=== PATIENT | female | born 1995 | race Caucasian/White ===

== ENCOUNTER 2016-05-19 20:19 | Emergency (ER) | payer MEDICAID, OTHER ==
[2016-05-19 20:34] VITALS: BP 116/63
--- NOTE | 2016-05-19 20:43 | UC ---
Skin Complaint HPI - HPI Summary HPI Summary: has had a soft limp on her back for years now it seems to be a little bigger and it is causing her discomfort - History of Current Complaint Chief Complaint: UCGeneralIllness Time Seen by Provider: 05/19/16 20:37 Stated Complaint: BUMP ON BACK Hx Obtained From: Patient Hx Last Menstrual Period: 3 ?: No Onset/Duration: Gradual Onset - over years, Worse Since - this past year Timing: Constant Onset Severity: Mild Current Severity: Moderate Pain Intensity: 5 Location: Discrete - center of lumbar/sacral area of back Aggravating: Nothing Alleviating: Nothing Associated Signs & Symptoms: Positive: Negative - Allergy/Home Medications Allergies/Adverse Reactions: Allergies Allergy/AdvReac Type Severity Reaction Status Date / Time Pseudoephedrine Allergy Severe Difficulty Verified 05/19/16 20:34 [From Claritin-D] Breathing Pineapple Allergy THROAT Verified 05/19/16 20:34 SWELLS Home Medications: Home Medications Antidepressant* 05/19/16 [History] Biotin 1 pow XX 05/19/16 [History] Review of Systems Constitutional: Negative Skin: Negative Eyes: Negative ENT: Negative Respiratory: Negative Cardiovascular: Negative Gastrointestinal: Negative Genitourinary: Negative Motor: Negative Neurovascular: Negative Musculoskeletal: Negative Neurological: Negative Psychological: Negative All Other Systems Reviewed And Are Negative: Yes PMH/Surg Hx/FS Hx/Imm Hx Previously Healthy: No Endocrine History Of: Denies: Diabetes, Thyroid Disease, Hyperthyroidism, Hypothyroidism, Dyslipidemia Cardiovascular History Of: Denies: Cardiac Disorders, Hypertension, Pacemaker/ICD, Myocardial Infarction , Congestive Heart Failure, Atrial Fibrillation, Deep Vein Thrombosis, Bleeding Disorders Respiratory History Of: Denies: COPD, Asthma GI/ History Of: Reports: Gastroesophageal Reflux Denies: Ulcer, Gastrointestinal Bleed, Gall Bladder Disease, Kidney Stones, Diverticulitis, Renal Disease, Urosepsis Neurological History Of: Denies: TIA, CVA, Dementia, Seizures, Migraine Psychological History Of: Reports: Anxiety - prozac, Depression Cancer History Of: Denies: Lung Cancer, Colorectal Cancer, Breast Cancer, Prostate Cancer, Cervical Cancer Other History Of: Negative For: HIV, Hepatitis B, Hepatitis C - Surgical History Surgical History: Yes Surgery Procedure, Year, and Place: UNDER ANESTHESIA AT AGE 3 TO RESET BROKEN ARM. D&C June 04 - Family History Known Family History: Positive: Blood Disorder - Mother bleeds easy, she is on coumadin. Negative: Renal Disease - Social History Occupation: Employed Part-time Lives: With Family Alcohol Use: Occasionally Substance Use Type: None Substance Use Comment - Amount & Last Used: states no marijuana for a while Smoking Status (MU): Never Smoked Tobacco - Immunization History Most Recent Influenza Vaccination: 12/22/2015 Most Recent Tetanus Shot: 10/27/2015 Most Recent Pneumonia Vaccination: never Physical Exam Triage Information Reviewed: Yes Appearance: Well-Appearing, No Pain Distress, Well-Nourished Vital Signs: Initial Vital Signs Temp 97 F 05/19/16 20:29 Pulse 80 05/19/16 20:29 Resp 16 05/19/16 20:29 BP 116/63 05/19/16 20:29 Pulse Ox 99 05/19/16 20:29 Vital Signs Reviewed: Yes Eye Exam: Normal Eyes: Positive: Conjunctiva Clear ENT Exam: Normal ENT: Positive: Normal ENT inspection, Hearing grossly normal, TMs normal. Negative: Nasal congestion, Nasal drainage, Trismus, Muffled/hoarse voice Neck exam: Normal Neck: Positive: Supple, Nontender, No Lymphadenopathy Respiratory Exam: Normal Respiratory: Positive: Chest non-tender, No respiratory distress, No accessory muscle use Cardiovascular Exam: Normal Cardiovascular: Positive: RRR, Pulses Normal, Brisk Capillary Refill Musculoskeletal Exam: Normal Neurological Exam: Normal Neurological: Positive: Alert, Muscle Tone Normal, Fatigued Psychological Exam: Normal Psychological: Positive: Normal Response To Family, Age Appropriate Behavior Skin Exam: Normal Skin: Positive: Other - lipoma 5 inch diameter lumbar sacral spine Course/Dx - Course Course Of Treatment: tylenol/ibuprofen follow with Surgeon next week - Differential Diagnoses - Skin Complaint Differential Diagnoses: Abscess, Urticaria, Other - lipoma - Diagnoses Provider Diagnoses: Lipoma lumbar/sacral back area Discharge - Discharge Plan Condition: Stable Disposition: HOME Patient Education Materials: Ibuprofen (By mouth), Lipoma (GEN) Referrals: Dez Leyva MD [Medical Doctor] - 5 Days No Primary Care Phys,NOPCP [Primary Care Provider] -
== END 2016-05-19 20:49 | disposition home or self-care (01) ==
LOC: UCEAST 20:19
DX: D17.79 Benign lipomatous neoplasm of other sites (principal); K21.9 Gastro-esophageal reflux disease without esophagitis; F41.9 Anxiety disorder, unspecified; F32.9 Major depressive disorder, single episode, unspecified
CPT/HCPCS: 99211; G0463

== ENCOUNTER 2018-01-17 17:48 | Emergency (ER) | payer MEDICAID, OTHER ==
[2018-01-17 18:12] VITALS: BP 124/84
--- NOTE | 2018-01-18 20:33 | UC ---
Abdominal Pain Female HPI - HPI Summary HPI Summary: Pt. is a 22 y.o female who presents to the with complaints of ongoing abd. pain, irregular vaginal bleeding and bladder pressure. Pt. states she has been dealing with diffuse abd. pain x several months to years. Pt. states she is currently trying to get . She notes irregular vaginal bleeding over the last few days. She also notes pressure when she urinates but denies dysuria or vaginal discharge. No associated sxs of V/D/C, fever, URI sxs. Sxs are moderate in severity. No current modifying factors. - History of Current Complaint Chief Complaint: UCAbdominalPain Stated Complaint: ABDOMINAL COMPLAINT Time Seen by Provider: 01/17/18 18:08 Hx Obtained From: Patient Hx Last Menstrual Period: 12/30/2017 Pain Intensity: 0 Pain Scale Used: 0-10 Numeric Allergies/Adverse Reactions: Allergies Allergy/AdvReac Type Severity Reaction Status Date / Time MS Pseudoephedrine Allergy Severe Difficulty Verified 06/14/16 10:22 [From Claritin-D] Breathing MS Pineapple [Pineapple] Allergy THROAT Verified 06/14/16 10:22 SWELLS pineapple Allergy See Comment Verified 01/17/18 18:05 pseudoephedrine Allergy Difficulty Verified 01/17/18 18:05 Breathing Home Medications: Home Medications Sertraline HCl [Zoloft] 100 mg PO DAILY 01/17/18 [History Confirmed 01/17/18] PMH/Surg Hx/FS Hx/Imm Hx Previously Healthy: Yes Other History Of: Negative For: HIV, Hepatitis B, Hepatitis C - Surgical History Surgical History: Yes Surgery Procedure, Year, and Place: UNDER ANESTHESIA AT AGE 3 TO RESET BROKEN ARM. D&C June 04, 2014 - Family History Known Family History: Positive: Blood Disorder - Mother bleeds easy, she is on coumadin., Non-Contributory Negative: Renal Disease - Social History Occupation: Employed Full-time Lives: With Family Alcohol Use: Rare Substance Use Type: Marijuana Substance Use Comment - Amount & Last Used: daily Smoking Status (MU): Never Smoked Tobacco - Immunization History Most Recent Influenza Vaccination: 12/22/2015 Most Recent Tetanus Shot: 10/27/2015 Most Recent Pneumonia Vaccination: never Review of Systems All Other Systems Reviewed And Are Negative: Yes Constitutional: Positive: Negative Skin: Positive: Negative ENT: Positive: Negative Respiratory: Positive: Negative Cardiovascular: Positive: Negative Gastrointestinal: Positive: Abdominal Pain Genitourinary: Positive: Abnormal Bleeding, Other - bladder pressure Neurological: Positive: Negative Is Patient Immunocompromised?: No Physical Exam Triage Information Reviewed: Yes Appearance: Well-Appearing - Pt. sitting on exam table in NAD. present. Vital Signs: Initial Vital Signs Temp 98.0 F 01/17/18 18:06 Pulse 86 01/17/18 18:06 Resp 18 01/17/18 18:06 BP 124/84 01/17/18 18:06 Pulse Ox 100 01/17/18 18:06 Vital Signs Reviewed: Yes Eye Exam: Normal Eyes: Positive: Conjunctiva Clear ENT: Positive: Pharynx normal, TMs normal Neck: Positive: Supple Respiratory: Positive: Lungs clear Cardiovascular: Positive: RRR Abdomen Description: Positive: Other: - Abd. is soft and nontender throughout. No CVA tenderness Musculoskeletal Exam: Normal Neurological: Positive: Alert Psychological Exam: Normal Skin Exam: Normal Abd Pain Female Course/Dx - Course Course Of Treatment: Pt. presenting for ongoing abd. pain and new complaints of irregular vaaginal bleeding and urinary pressure. She is afebrile and well appearing. She has a benign abd. exam. urine is negative. U/A shows trace leukocytes and RBCs, will send for culture before treating. Results discussed. PtAlyssa harris does not have a ACCT EXEC. Strongly advised to call Dr. Jennings's office tomorrow for a close f.u apt. for further evaluation and testing. Advised to go to ER for worsening pain, fever, vomiting or if concerned. Pt. understands and agrees with plan. - Differential Dx/Diagnosis Differential Diagnosis: Appendicitis, Constipation, Pelvic Inflammatory Disease , , Urinary Tract Infection Provider Diagnosis: Chronic abdominal pain, Abnormal vaginal bleeding Discharge - Sign-Out/Discharge Documenting (check all that apply): Patient Departure All imaging exams completed and their final reports reviewed: No Studies - Discharge Plan Condition: Good Disposition: HOME Patient Education Materials: Dysfunctional Uterine Bleeding (ED), Chronic Abdominal Pain (ED) Referrals: [facility] [Outside] Zena Jennings MD [Medical Doctor] - Additional Instructions: Call Dr. Jennings's office tomorrow to schedule a close follow up appointment Will call if urine culture is positive Go to the ER for worsening pain, fever, vomiting or if concerned - Billing Disposition and Condition Condition: GOOD Disposition: Home
== END 2018-01-17 19:20 | disposition home or self-care (01) ==
LOC: UCEAST 17:48
DX: R10.84 Generalized abdominal pain (principal); N93.9 Abnormal uterine and vaginal bleeding, unspecified; R39.89 Other symptoms and signs involving the genitourinary system; Z32.02 Encounter for pregnancy test, result negative; Z88.8 Allergy status to other drugs, medicaments and biological substances
CPT/HCPCS: 81003; 84702; 87086; 99211; G0463

== ENCOUNTER 2018-08-19 23:42 | Emergency (ER) | payer OTHER ==
--- NOTE | 2018-08-20 01:24 | ED ---
Abdominal Pain/Female - HPI Summary HPI Summary: This patient is a 22 year old F presenting to ED with a chief complaint of upper abdominal pain since a couple days ago. Patient had a tooth extraction on 08/14/18 and reports a terrible taste in the mouth. She suspects an infection. She is not taking antibiotics. The patient rates the pain 7/10 in severity. Symptoms aggravated by nothing. Symptoms alleviated by nothing. Patient reports vomitingx7 and chills but denies fever and diarrhea. Any oral intake will cause her to vomit. She last had a bowel movement today and it was normal for her. She last vomited upon arrival to [facility]. - History of Current Complaint Chief Complaint: EDAbdPain Stated Complaint: DENTAL PAIN PER PT Time Seen by Provider: 08/20/18 01:07 Hx Obtained From: Patient Hx Last Menstrual Period: 12/30/2017 Onset/Duration: Lasting Days, Worse Since Severity Currently: Moderate Pain Intensity: 7 Pain Scale Used: 0-10 Numeric Location: Diffuse Aggravating Factor(s): Nothing Alleviating Factor(s): Nothing Associated Signs and Symptoms: Positive: Vomiting, Other: - Terrible taste in mouth, chills. Negative: Fever, Diarrhea Allergies/Adverse Reactions: Allergies Allergy/AdvReac Type Severity Reaction Status Date / Time MS Pseudoephedrine Allergy Severe Difficulty Verified 08/19/18 23:47 [From Claritin-D] Breathing MS Pineapple [Pineapple] Allergy THROAT Verified 08/19/18 23:47 SWELLS pineapple Allergy See Comment Verified 08/19/18 23:47 pseudoephedrine Allergy Difficulty Verified 08/19/18 23:47 Breathing PMH/Surg Hx/FS Hx/Imm Hx Endocrine/Hematology History: Reports: Hx Anemia - SLIGHTLY ANEMIC, NO MEDS Denies: Hx Diabetes, Hx Thyroid Disease Cardiovascular History: Denies: Hx Congestive Heart Failure, Hx Deep Vein Thrombosis, Hx Hypertension , Hx Myocardial Infarction, Hx Pacemaker/ICD Respiratory History: Denies: Hx Asthma, Hx Chronic Obstructive Pulmonary Disease (COPD), Hx Lung Cancer GI History: Reports: Hx Gastroesophageal Reflux Disease - NO MEDS, Hx Irritable Bowel - NO MEDS Denies: Hx Gall Bladder Disease, Hx Gastrointestinal Bleed, Hx Ulcer, Hx Urosepsis History: Reports: Other Problems/Disorders - FREQUENTLY UTI'S, NONE NOW, HX MOLAR Denies: Hx Kidney Stones, Hx Renal Disease Sensory History: Reports: Hx Contacts or Glasses - CONTACTS, INSTRUCTED TO WEAR GLASSES DAY OF SURGERY Denies: Hx Hearing Aid Opthamlomology History: Reports: Hx Contacts or Glasses - CONTACTS, INSTRUCTED TO WEAR GLASSES DAY OF SURGERY Neurological History: Reports: Hx Headaches - FREQUENTLY, UNKNOWN ETIOLOGY Denies: Hx Dementia, Hx Migraine, Hx Seizures, Hx Transient Ischemic Attacks (TIA) Psychiatric History: Reports: Hx Anxiety - prozac, Hx Depression, Hx of Violent Episodes Against Others Denies: Hx Eating Disorder, Hx Panic Disorder - Surgical History Surgery Procedure, Year, and Place: UNDER ANESTHESIA AT AGE 3 TO RESET BROKEN ARM. D&C June 04, 2014 Hx Anesthesia Reactions: No Infectious Disease History: No Infectious Disease History: Denies: Hx Clostridium Difficile, Hx Hepatitis, Hx Human Immunodeficiency Virus (HIV), Hx of Known/Suspected MRSA, Hx Shingles, Hx Tuberculosis, History Other Infectious Disease, Traveled Outside the [place] in Last 30 Days - Family History Known Family History: Positive: Blood Disorder - Mother bleeds easy, she is on coumadin., Non-Contributory Negative: Renal Disease - Social History Alcohol Use: Rare Substance Use Type: Reports: Marijuana Substance Use Comment - Amount & Last Used: daily Hx Tobacco Use: No Smoking Status (MU): Never Smoked Tobacco Review of Systems Positive: Chills. Negative: Fever ENT: Other - Terrible taste in mouth Positive: Abdominal Pain, Vomiting. Negative: Diarrhea All Other Systems Reviewed And Are Negative: Yes Physical Exam - Summary Physical Exam Summary: VITAL SIGNS: Reviewed. GENERAL: Patient is a well-developed and nourished female who is lying comfortable in the stretcher. Patient is not in any acute respiratory distress. HEAD AND FACE: No signs of trauma. No ecchymosis, hematomas or skull depressions. No sinus tenderness. EYES: PERRLA, EOMI x 2, No injected conjunctiva, no nystagmus. EARS: Hearing grossly intact. Ear canals and tympanic membranes are within normal limits. MOUTH: Oropharynx within normal limits. NECK: Supple, trachea is midline, no adenopathy, no JVD, no carotid bruit, no c- spine tenderness, neck with full ROM CHEST: Symmetric, no tenderness at palpation LUNGS: Clear to auscultation bilaterally. No wheezing or crackles. CVS: Regular rate and rhythm, S1 and S2 present, no murmurs or gallops appreciated. ABDOMEN: hyperactive bowel sounds EXTREMITIES: FROM in all major joints, no edema, no cyanosis or clubbing. NEURO: Alert and oriented x 3. No acute neurological deficits. Speech is normal and follows commands. SKIN: Dry and warm Triage Information Reviewed: Yes Vital Signs On Initial Exam: Initial Vitals Temp Pulse Resp BP Pulse Ox 97.9 F 56 16 116/85 98 08/19/18 23:44 08/19/18 23:44 08/19/18 23:44 08/19/18 23:44 08/19/18 23:44 Vital Signs Reviewed: Yes Diagnostics - Vital Signs Vital Signs Temp Pulse Resp BP Pulse Ox 08/19/18 23:44 97.9 F 56 16 116/85 98 - Laboratory Result Diagrams: 08/20/18 02:25 08/20/18 02:25 Lab Statement: Any lab studies that have been ordered have been reviewed, and results considered in the medical decision making process. Abdominal Pain Fem Course/Dx - Course Course Of Treatment: This patient is a 22 year old F presenting to ED with a chief complaint of upper abdominal pain since a couple days ago. In the ED course, patient received Reglan and fluids. Blood work obtained. Patient will be discharged home with dx of gastritis and abdominal pain. Patient understands and agrees with this plan. - Diagnoses Provider Diagnoses: Gastritis, Abdominal pain Discharge - Sign-Out/Discharge Documenting (check all that apply): Patient Departure - Discharge Patient Received Moderate/Deep Sedation with Procedure: No - Discharge Plan Condition: Stable Disposition: HOME Prescriptions: Metoclopramide TAB* [Reglan TAB*] 10 mg PO Q6H PRN #20 tab PRN Reason: Nausea/Vomiting Patient Education Materials: Gastritis (ED), Acute Abdominal Pain (ED) Referrals: [facility] [Outside] - 2 Days Additional Instructions: Follow up with your primary care provider in 1-2 days. RETURN TO THE ER FOR WORSENING OR CHANGING SYMPTOMS. - Attestation Statements Document Initiated by Scribe: Yes Documenting Scribe: Anders Barrett Provider For Whom Scribe is Documenting (Include Credential): Ayse Rojo MD Scribe Attestation: Anders Soni, scribed for Ayse Rojo MD on 08/20/18 at 0330. Status of Scribe Document: Ready
[2018-08-20] MEDS ORDERED: NS 0.9% 1000 ML** 1,000 ML IV ONE (01:25)
[2018-08-20] MEDS ORDERED: Metoclopramide IV* 5 MG/ML 2 ML VIAL IV SLOW PU ONE (01:25)
[2018-08-20 02:45] LABS: ABS Lymphocytes 1.6 10^3/ul (1.0-4.8); ABS Monocytes 0.3 10^3/ul (0-0.8); ABS Neutrophils 6.7 10^3/ul (1.5-7.7); Eosinophil % 0.4 %; Hematocrit 42 % (35-47); Hemoglobin 13.9 g/dL (12.0-16.0); Lymphocyte % 18.6 %; Mean Corpuscular HGB Conc 33 g/dL (31-36); Mean Corpuscular Hemoglobin 29 pg (27-31); Mean Corpuscular Volume 88 fL (80-97); Mean Platelet Volume 7.9 fL (7.4-10.4); Platelet Count 322 10^3/uL (150-450); Red Blood Count 4.77 10^6 /uL (3.70-4.87); Red Cell Distribution Width 13 % (10-15); White Blood Count 8.6 10^3/uL (3.5-10.8)
[2018-08-20 03:19] LABS: ALT 11 U/L (7-52); AST 13 U/L (13-39); Albumin 4.6 g/dL (3.2-5.2); Albumin/Globulin Ratio 1.5 (1-3); Alkaline Phosphatase 43 U/L (34-104); Amylase 55 U/L (29-103); Anion Gap 6 mmol/L (2-11); BUN/Creatinine Ratio 6.7 (8-20); Blood Urea Nitrogen 5 mg/dL (6-24); C Reactive Protein < 1.00 mg/L (<8.01); CO2 Carbon Dioxide 27 mmol/L (22-32); Calcium 9.4 mg/dL (8.6-10.3); Chloride 108 mmol/L (101-111); EGFR African American 114.9 (>60); EGFR Non-African American 94.9 (>60); Glucose 116 mg/dL (70-100); Potassium 4.1 mmol/L (3.5-5.0); Sodium 141 mmol/L (135-145); Total Protein 7.6 g/dL (6.4-8.9)
[2018-08-20 03:25] LABS: HCG Pregnancy 2.75 mIU/mL
[2018-08-20 04:47] VITALS: BP 112/73
== END 2018-08-20 04:46 | disposition home or self-care (01) ==
LOC: ED 23:42
DX: K29.70 Gastritis, unspecified, without bleeding (principal); R10.9 Unspecified abdominal pain; R11.10 Vomiting, unspecified; K21.9 Gastro-esophageal reflux disease without esophagitis
CPT/HCPCS: 36415; 80053; 82150; 83690; 84702; 85025; 86140; 96361; 96374; 99282; J2765

== ENCOUNTER 2018-11-07 11:54 | Emergency (ER) | payer OTHER ==
--- NOTE | 2018-11-07 12:38 | UC ---
FLU HPI - HPI Summary HPI Summary: Patient is a 23yo female accompanied by her mother and her daughter presenting for cold symptoms and nausea and vomiting x3 days. Patient states her family has had cold symptoms this week as well but no GI symptoms. States she has thrown up 4x/day the past three days. She is unable to keep food down. Is able to drink sips of water. Notes nasal congestion and sore throat. Notes headache, body aches, and fatigue. Notes "feeling warm" but has not taken temp at home. Denies ear pain and cough. Denies SOB, wheezing, or difficulty breathing. Denies diarrhea. Patient denies abdominal pain. Patient states she is currently getting worked up for crohn's disease. Patient works as a home health aide. - History of Current Complaint Stated Complaint: VOMITING Time Seen by Provider: 11/07/18 12:38 Hx Obtained From: Patient Hx Last Menstrual Period: 12/30/2017 Onset/Duration: Gradual Onset, Lasting Days - Allergy/Home Medications Allergies/Adverse Reactions: Allergies Allergy/AdvReac Type Severity Reaction Status Date / Time pineapple Allergy See Comment Verified 11/07/18 12:45 pseudoephedrine Allergy Difficulty Verified 11/07/18 12:45 Breathing Home Medications: Home Medications Ethinyl Estradiol/Drospirenone [Ocella 3 mg-0.03 mg Tablet] 1 tab PO DAILY 11/07 [History Confirmed 11/07/18] PMH/Surg Hx/FS Hx/Imm Hx Previously Healthy: Yes Other History Of: Negative For: HIV, Hepatitis B, Hepatitis C - Surgical History Surgical History: Yes Surgery Procedure, Year, and Place: UNDER ANESTHESIA AT AGE 3 TO RESET BROKEN ARM. D&C June 04, 2014 - Family History Known Family History: Positive: Blood Disorder - Mother bleeds easy, she is on coumadin., Non-Contributory Negative: Renal Disease - Social History Alcohol Use: Rare Substance Use Type: Marijuana Substance Use Comment - Amount & Last Used: daily Smoking Status (MU): Never Smoked Tobacco - Immunization History Most Recent Influenza Vaccination: 12/22/2015 Most Recent Tetanus Shot: 10/27/2015 Most Recent Pneumonia Vaccination: never Review of Systems All Other Systems Reviewed And Are Negative: Yes Constitutional: Positive: Fever, Fatigue. Negative: Chills Skin: Positive: Negative Eyes: Positive: Negative ENT: Positive: Sore Throat, Nasal Discharge, Sinus Congestion. Negative: Ear Ache, Sinus Pain/Tenderness Respiratory: Positive: Negative. Negative: Shortness Of Breath, Cough Cardiovascular: Positive: Negative Gastrointestinal: Positive: Vomiting, Nausea. Negative: Abdominal Pain, Diarrhea Genitourinary: Positive: Negative Musculoskeletal: Positive: Myalgia. Negative: Arthralgia, Decreased ROM, Edema Neurological: Positive: Headache, Weakness. Negative: Numbness Psychological: Positive: Negative Physical Exam Triage Information Reviewed: Yes Appearance: No Pain Distress, Well-Nourished, Other: - patient appears fatigued Vital Signs: Vital Signs (72 hours) 11/07/18 12:37 Temperature 99.1 F Pulse Rate 67 Respiratory 16 Rate Blood Pressure 124/82 (mmHg) O2 Sat by Pulse 96 Oximetry Laboratory Tests 11/07/18 12:51 Influenza A (Rapid) Negative Influenza B (Rapid) Negative Vital Signs Reviewed: Yes Eyes: Positive: Conjunctiva Clear ENT: Positive: Hearing grossly normal, Pharynx normal, Nasal drainage, TMs normal, Uvula midline. Negative: Pharyngeal erythema, Nasal congestion, TM bulging, TM dull, TM red, Tonsillar swelling, Tonsillar exudate, Sinus tenderness Neck exam: Normal Neck: Positive: Supple, Nontender, No Lymphadenopathy Respiratory Exam: Normal Respiratory: Positive: Lungs clear, Normal breath sounds, No respiratory distress, No accessory muscle use Cardiovascular Exam: Normal Cardiovascular: Positive: RRR, Pulses Normal. Negative: Tachycardia Abdominal Exam: Normal Abdomen Description: Positive: Nontender, Soft. Negative: CVA Tenderness (R), CVA Tenderness (L), Distended, Guarding, McBurney's Point Tenderness Bowel Sounds: Positive: Hypoactive Musculoskeletal Exam: Normal Neurological: Positive: Alert Psychological: Positive: Age Appropriate Behavior Flu Course/Dx - Course Course Of Treatment: Discussed with patient the negative rapid flu test and likely viral source of symptoms. Patient prescribed zofran for nausea and vomiting. Instructed to continue to take over the counter cough and cold medication for symptomatic relief. Patient may take tylenol and ibuprofen as prescribed for fever and pain relief. Patient instructed to get plenty of rest and drink plenty of fluids. Directed patient to return or go to the emergency department if she experiences worsening symptoms, including fever, abdominal pain, or blood in vomit or stool. - Differential Dx/Diagnosis Provider Diagnosis: Nausea & vomiting, Upper respiratory infection, viral Discharge ED - Sign-Out/Discharge Documenting (check all that apply): Patient Departure All imaging exams completed and their final reports reviewed: No Studies - Discharge Plan Condition: Stable Disposition: HOME Prescriptions: Ondansetron ODT TAB* [Zofran 4 MG Odt TAB*] 4 mg PO Q6H PRN #12 tab.odt PRN Reason: Nausea/Vomiting Patient Education Materials: Acute Nausea and Vomiting (ED) Forms: *Work Release Referrals: [facility] [Outside] - If Needed Additional Instructions: As discussed, your rapid flu test was negative today and your symptoms are most likely caused by a virus. You may take zofran as prescribed for you nausea and vomiting. You may continue to take over the counter cough and cold medication for symptomatic relief. You may also take tylenol and ibuprofen as prescribed for fever and pain relief. Be sure to get plenty of rest and drink plenty of fluids. Return or go to the emergency department if you experience worsening symptoms, including fever, abdominal pain, or blood in vomit or stool. - Billing Disposition and Condition Condition: STABLE Disposition: Home
[2018-11-07 12:41] VITALS: BP 124/82
[2018-11-07 13:04] LABS: Influenza A Molecular NEGATIVE (Negative); Influenza B Molecular NEGATIVE (Negative)
== END 2018-11-07 13:39 | disposition home or self-care (01) ==
LOC: UCEAST 11:54
DX: R11.2 Nausea with vomiting, unspecified (principal); J06.9 Acute upper respiratory infection, unspecified
CPT/HCPCS: 99212; G0463

== ENCOUNTER 2019-03-08 15:35 | Emergency (ER) | payer OTHER ==
--- OUTSIDE RECORDS SUMMARY | 2019-03-08 15:41 | XMS REPORT ---
:1995 Author Organization [facility] Care Team Providers Name Role Phone Brenna Hernández Primary Care Physician Unavailable Allergies, Adverse Reactions, Alerts Allergy Code CodeSystem Reaction Severity Criticality Status Start Substance Date Moderate Medications Medication Medication Medication Start Stop Route Dose Status Fill Code CodeSystem Date Date Instructions lorazepam RxNorm 2018-08-0 oral 0.5 mg completed 1 10-12 1 twice a day tablet as needed for twice a 30 day(s) day Problems Problem Name Code CodeSystem Alternate Alternate Start End Status Narrative Code CodeSystem Date Date 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-10 Relevant diagnostic tests/laboratory data Narrative No Information Procedures Procedure Code CodeSystem Target Date of Status Service Device Device Device Name Site Procedure Delivery Code Name UID Location Psychotherap [id number] SNOMED-CT () 2018-05-22 complete Mental y, 45 04 d Health- minutes with [address], [id number] [id number] Psychotherap [id number] SNOMED-CT () 2018-06-13 complete Mental y, 45 04 d Health- minutes with [address], [id number] [phone] Psychotherap [id number] SNOMED-CT () 2018-08-05 complete Mental y, 45 04 d Health- minutes with [address], [id number] [id number] Psychotherap [id number] SNOMED-CT () 2018-08-27 complete Mental y, 45 04 d Health- minutes with [address], [id number] [id number] Psychotherap [id number] SNOMED-CT () 2018-12-25 complete Mental y, 45 04 d Health- minutes with [address], [id number] Psychotherap [id number] SNOMED-CT () 2018-12-20 complete Mental y, 45 04 d Health- minutes with [facility] patient [address], [id number] [id number] Office [place] [id number] SNOMED-CT () 2018-09-12 complete Mental other 6 d Health- outpatient [facility] visit for [address], of an [place], established [id number] patient, [id number] which requires at least 2 of these 3 perrin components: A problem focused history; A problem focused examination; Straightforw fidel medical decision making. Counselin SNOMED-CT () 2018-09-12 complete Mental d [address], [phone] SNOMED-CT () 2018-10-10 complete Mental d [address], [id number] [id number] SNOMED-CT () 2018-10-29 complete Mental d [address], [id number] SNOMED-CT () 2018-06-26 complete Mental d [address], [id number] SNOMED-CT () 2018-11-14 complete Mental d [address], [id number] [id number] SNOMED-CT () 2018-05-20 complete Mental d [address], [id number] [id number] Encounters/Encounter Diagnoses Encounter Name Encounter Diagnosis Diagnosis Diagnosis Date of Service Code Code Name CodeSystem Diagnosis Delivery Location Psychotherapy [id number] Cyclothymia SNOMED-CT 2018-12-25 [facility]al [facility] [address] [place] [address], [id number] Vital Signs No Information Social History Element Description Description Start End Code CodeSystem AdditionalInfo Date Date SexAssignedAtBirth Female 1996-0 F AdministrativeGender 09-21 Hospital Discharge Instructions Reason For Referral Medical Equipment FDA Assessments
[2019-03-08 15:49] VITALS: BP 128/80
--- NOTE | 2019-03-08 16:00 | UC ---
Throat Pain/Nasal Betito HPI - HPI Summary HPI Summary: Started with nasal congestion 1 week ago, has tried several OTC cold and sinus meds but getting worse. today has facial pressure and L ear started to hurt - History of Current Complaint Chief Complaint: UCRespiratory Stated Complaint: SINUS COMPLAINT Time Seen by Provider: 03/08/19 15:39 Hx Obtained From: Patient Hx Last Menstrual Period: [id number] ?: No Onset/Duration: Gradual Onset Severity: Moderate Pain Intensity: 7 Cough: None Associated Signs & Symptoms: Positive: Sinus Discomfort, Nasal Discharge, Fever - Allergies/Home Medications Allergies/Adverse Reactions: Allergies Allergy/AdvReac Type Severity Reaction Status Date / Time pineapple Allergy See Comment Verified 03/08/19 15:50 pseudoephedrine Allergy Difficulty Verified 03/08/19 15:50 Breathing Home Medications: Home Medications Calcium Polycarbophil [Fiber Therapy] 1 tab PO DAILY 03/08/19 [History Confirmed 03/08/19] Docusate CAP* [Colace Cap*] 200 mg PO BEDTIME 03/08/19 [History Confirmed ] Prenatl Vit6/Iron/FA/B12/Ca/D3 [Mteryti Combo Pack] 1 tab PO DAILY 03/08/19 [ History Confirmed 03/08/19] PMH/Surg Hx/FS Hx/Imm Hx Previously Healthy: Yes Other History Of: Negative For: HIV, Hepatitis B, Hepatitis C - Surgical History Surgical History: Yes Surgery Procedure, Year, and Place: UNDER ANESTHESIA AT AGE 3 TO RESET BROKEN ARM. D&C June 04, 2014 - Family History Known Family History: Positive: Blood Disorder - Mother bleeds easy, she is on coumadin., Non-Contributory Negative: Renal Disease - Social History Occupation: Employed Full-time Lives: With Family Alcohol Use: Occasionally Substance Use Type: Marijuana Substance Use Comment - Amount & Last Used: daily Smoking Status (MU): Never Smoked Tobacco Cessation Counseling: Patient Advised to Stop - Immunization History Most Recent Influenza Vaccination: 11/2018 Most Recent Tetanus Shot: 10/27/2015 Most Recent Pneumonia Vaccination: never Review of Systems All Other Systems Reviewed And Are Negative: Yes Constitutional: Positive: Fatigue Skin: Positive: Negative Eyes: Positive: Negative ENT: Positive: Nasal Discharge, Sinus Congestion, Sinus Pain/Tenderness Respiratory: Positive: Negative Cardiovascular: Positive: Negative Musculoskeletal: Positive: Negative Neurological: Positive: Negative Psychological: Positive: Negative Is Patient Immunocompromised?: No Physical Exam Triage Information Reviewed: Yes Appearance: Well-Appearing, No Pain Distress, Well-Nourished Vital Signs: Initial Vital Signs Temp 98.4 F 03/08/19 15:44 Pulse 80 03/08/19 15:44 Resp 18 03/08/19 15:44 BP 128/80 03/08/19 15:44 Pulse Ox 98 03/08/19 15:44 Vital Signs Reviewed: Yes Eye Exam: Normal Eyes: Positive: Conjunctiva Clear ENT: Positive: Pharynx normal, Nasal congestion, Nasal drainage, TM dull, Sinus tenderness, Other - thick PND Neck exam: Normal Neck: Positive: Supple, Nontender Respiratory Exam: Normal Respiratory: Positive: Lungs clear Cardiovascular Exam: Normal Cardiovascular: Positive: RRR Neurological Exam: Normal Psychological Exam: Normal Skin Exam: Normal Skin: Negative: Rashes Throat Pain/Nasal Course/Dx - Differential Dx/Diagnosis Differential Diagnosis/HQI/PQRI: Epiglottitis, Influenza, Otitis Media, Pharyngitis, Sinusitis, Tonsillitis, URI Provider Diagnosis: Sinusitis Discharge ED - Sign-Out/Discharge Documenting (check all that apply): Patient Departure All imaging exams completed and their final reports reviewed: No Studies - Discharge Plan Condition: Good Disposition: HOME Prescriptions: Cefdinir cap* [Cefdinir 300 MG cap (NF)] 300 mg PO BID #20 cap Patient Education Materials: Sinusitis (ED) Referrals: No Primary Care Phys,NOPCP [Primary Care Provider] - Additional Instructions: drink plenty of fluids and rest start antibiotic and take as directed use your over the counter medication to help with symptom relief Return if no better 2-3 days - Billing Disposition and Condition Condition: GOOD Disposition: Home
== END 2019-03-08 16:19 | disposition home or self-care (01) ==
LOC: UCEAST 15:35
DX: J32.9 Chronic sinusitis, unspecified (principal); Z91.018 Allergy to other foods; Z88.8 Allergy status to other drugs, medicaments and biological substances
CPT/HCPCS: 99212; G0463